=== PATIENT | female | born 2005 | race Caucasian/White ===

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

== ENCOUNTER → 2023-02-21 | Outpatient (CLI) | payer OTHER ==
--- NOTE | 2023-02-21 09:58 | US ---
EXAMINATION TYPE: US groin LT DATE OF EXAM: 02/21/2023 COMPARISON: NONE CLINICAL INDICATION: Female, 17 years old with history of D041 acute lymphadenitis; Patient feels lum p lt groin x 1 week but has felt radiating pain in the area x 3 weeks TECHNIQUE: several images taken at area of concern FINDINGS: palpable are corresponds with probable lymph node medial and anterior to iliac vessels santy suring 3.7x1.5x1.5cm, hyperemic with difficult to distinguish fatty hilum from adjacent tissue. IMPRESSION: Abnormal appearing left groin lymph node.
== END | disposition home or self-care (01) ==
LOC: RADUSWWP 08:47
PROVIDERS: ATTEND Family Medicine
DX: L04.1 Acute lymphadenitis of trunk (principal)